=== PATIENT | female | born 1975 | race Caucasian/White ===

== ENCOUNTER 2024-02-20 21:31 | Emergency (ER) | payer MEDICAID ==
[~2024-02-20] VITALS: Ht 167.6 cm; Wt 98.0 kg
[2024-02-20 21:47] VITALS: O2SAT 98
[2024-02-21] MEDS: ACETAMINOPHEN 325MG TABLET PO ONE (00:11)
[2024-02-21 00:25] VITALS: BP 145/86; PULSE 80; RESP 16; TEMP 98.4
== END 2024-02-21 00:34 | disposition home or self-care (01) ==
LOC: ER 21:31
DX: S89.91XA Unspecified injury of right lower leg, initial encounter (principal); S99.911A Unspecified injury of right ankle, initial encounter; M25.561 Pain in right knee; J45.909 Unspecified asthma, uncomplicated; Z88.2 Allergy status to sulfonamides; M25.571 Pain in right ankle and joints of right foot; W18.39XA Other fall on same level, initial encounter; Y93.89 Activity, other specified; Y92.89 Other specified places as the place of occurrence of the external cause; Y99.8 Other external cause status
CPT/HCPCS: 73562; 73610; 99284; Z7610; L1830

== ENCOUNTER 2024-07-21 04:00 | Emergency (ER) | payer MEDICAID, OTHER ==
[~2024-07-21] VITALS: Ht 162.6 cm; Wt 95.0 kg
[2024-07-21 04:07] VITALS: O2SAT 96
[2024-07-21 04:51] VITALS: BP 119/71; PULSE 79; RESP 16; TEMP 97.5; O2SAT 98
[2024-07-21 04:53] LABS: BASOPHILS % 0.6 % (0.0-2.0); EOSINOPHILS % 4.8 % (0.0-5.0); HEMATOCRIT. 41.8 % (36.0-48.0); HEMOGLOBIN. 13.8 g/dL (12.0-16.0); LYMPHOCYTES % 28.6 % (20.0-50.0); MEAN CORPUSCULAR HEMOGLOBIN 30.2 pg (28.0-32.0); MEAN CORPUSCULAR HGB CONC 33.1 g/dL (31.0-37.0); MEAN CORPUSCULAR VOLUME 91.4 fL (81.0-99.0); MONOCYTES % 7.4 % (2.0-8.0); NEUTROPHILS % 58.6 % (40.0-76.0); PLATELET 273 x1000/uL (130-400); RED BLOOD CELL COUNT 4.57 mill/uL (4.2-5.4); RED CELL DISTRIBUTION WIDTH 13.8 % (11.6-14.6); WHITE BLOOD COUNT 7.7 x1000/uL (4.5-11.0)
[2024-07-21 05:02] LABS: CHLORIDE 105 mEq/L (98-107); POTASSIUM 4.4 mEq/L (3.5-5.1); SODIUM 139 mEq/L (136-145)
[2024-07-21 05:03] LABS: CALCIUM 9.6 mg/dL (8.7-10.4); CARBON DIOXIDE 26 mEq/L (21-32)
[2024-07-21 05:08] LABS: CREATININE 0.8 mg/dL (0.6-1.0); GLUCOSE 139 mg/dL (70-105); UREA NITROGEN BLOOD 13 mg/dL (9-23)
[2024-07-21 05:09] LABS: TROPONIN I HIGH SENSITIVITY 4 ng/L (3.0-34)
== END 2024-07-21 08:27 | disposition home or self-care (01) ==
LOC: ER 04:10
DX: R07.89 Other chest pain (principal); Z88.2 Allergy status to sulfonamides; Z88.8 Allergy status to other drugs, medicaments and biological substances; Z91.040 Latex allergy status; Z86.59 Personal history of other mental and behavioral disorders; Z98.890 Other specified postprocedural states; Z90.49 Acquired absence of other specified parts of digestive tract
CPT/HCPCS: 36415; 71045; 80048; 84484; 85025; 93005; 99285